=== PATIENT | male | born 2005 | race Caucasian/White ===

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

== ENCOUNTER 2024-12-21 13:31 | Emergency (ER) | payer OTHER ==
[2024-12-21 13:41] VITALS: BP 128/73; PULSE 99; RESP 16; TEMP 98.8; BMI 32.8
[2024-12-21 16:09] LABS: HIV INTERPRETATION NEGATIVE (NEGATIVE)
[2024-12-21 16:15] LABS: HCV DIAGNOSTIC IN-HOUSE W/RFLX NON-REACTIVE (NONREACTIVE)
== END 2024-12-21 14:36 | disposition home or self-care (01) ==
LOC: FER 13:31
DX: R05.9 Cough, unspecified (principal); J02.9 Acute pharyngitis, unspecified; R09.81 Nasal congestion; J34.89 Other specified disorders of nose and nasal sinuses; J06.9 Acute upper respiratory infection, unspecified
CPT/HCPCS: 36415; 86803; 87389; 87637-QW; 99283-25